=== PATIENT | male | born 1990 | race Caucasian/White ===

== ENCOUNTER 2019-02-11 09:28 | Emergency (ER) | payer MEDICAID, OTHER ==
--- NOTE | 2019-02-11 10:29 | UC ---
Respiratory Complaint HPI - HPI Summary HPI Summary: 28-year-old male with cough and cold symptoms for greater than 1 week. He states now he has some wheezing. He is a nonsmoker. It was also noted that his blood pressure was elevated which she states he has in his family history however he does not take any medicine for that. - History of Current Complaint Chief Complaint: UCRespiratory Stated Complaint: COUGH WHEEZING Time Seen by Provider: 02/11/19 10:28 Hx Obtained From: Patient Onset/Duration: Gradual Onset Severity Initially: Mild Severity Currently: Mild Pain Intensity: 0 Character: Cough: Productive - Productive cough of yellow sputum. Aggravating Factors: Deep Breaths Alleviating Factors: Nothing Associated Signs And Symptoms: Positive: URI, Nasal Congestion - Allergies/Home Medications Allergies/Adverse Reactions: Allergies Allergy/AdvReac Type Severity Reaction Status Date / Time No Known Allergies Allergy Verified 02/11/19 09:52 PMH/Surg Hx/FS Hx/Imm Hx Previously Healthy: Yes - Surgical History Surgical History: None - Family History Known Family History: Positive: Hypertension - Social History Occupation: Employed Full-time Lives: With Family Alcohol Use: Rare Substance Use Type: None Smoking Status (MU): Never Smoked Tobacco Review of Systems All Other Systems Reviewed And Are Negative: Yes Constitutional: Positive: Fever, Chills - Patient has not registered any fever or home but he states he goes from feeling hot to cold. ENT: Positive: Nasal Discharge, Sinus Congestion Respiratory: Positive: Cough - Productive cough of yellow sputum. Is Patient Immunocompromised?: No Physical Exam Triage Information Reviewed: Yes Appearance: Well-Appearing, No Pain Distress, Well-Nourished Vital Signs: Initial Vital Signs Temp 97.6 F 02/11/19 09:48 Pulse 64 02/11/19 09:48 Resp 20 02/11/19 09:48 BP 144/100 02/11/19 09:48 Pulse Ox 100 02/11/19 09:48 Vital Signs Reviewed: Yes Eyes: Positive: Conjunctiva Clear ENT: Positive: Pharynx normal, Nasal congestion, Nasal drainage, TMs normal, Uvula midline Neck: Positive: Supple, Nontender, No Lymphadenopathy Respiratory: Positive: No respiratory distress, No accessory muscle use, Rhonchi , Wheezing - Scattered wheezing and rhonchi throughout, no distress. Cardiovascular: Positive: RRR, No Murmur, Pulses Normal, Brisk Capillary Refill Musculoskeletal Exam: Normal Neurological Exam: Normal Psychological Exam: Normal Skin Exam: Normal Respiratory Course/Dx - Course Course Of Treatment: DuoNeb treatment: Increased aeration and decreased wheezing throughout all lung mueller. Chest x-ray:FINDINGS: The heart is within normal limits in size. Mediastinal and hilar contours appear within normal limits. The lungs are hyperinflated and clear. No pleural effusion is seen. IMPRESSION: NO EVIDENCE FOR ACTIVE CARDIOPULMONARY DISEASE. The patient has elevated blood pressure today. I did speak with him about this and he does not take any medications. We discussed weight loss and healthy eating however I did advise him he should follow-up with his primary care provider for a recheck. I'm going to start the patient on an albuterol inhaler 2 puffs every 4-6 hours as needed for tight cough or wheezing. He has used inhalers before and states they usually work well for him. I'm also going to give him a Z-Yeyo for treatment. - Differential Dx/Diagnosis Provider Diagnosis: Elevated blood pressure reading in office without diagnosis of hypertension, Bronchitis Discharge ED - Sign-Out/Discharge Documenting (check all that apply): Patient Departure All imaging exams completed and their final reports reviewed: Yes - Discharge Plan Condition: Good Disposition: HOME Prescriptions: Albuterol HFA INHALER* [Ventolin HFA Inhaler*] 2 puff INH Q4H PRN 5 Days #1 mdi PRN Reason: Wheezing Azithromyxin YEYO (NF) [Z-Yeyo (Zithromax) 250 mg tabs #6] 2 tab PO .TODAY, THEN 1 DAILY #6 tab Patient Education Materials: Acute Bronchitis (ED) Referrals: No Primary Care Phys,NOPCP [Primary Care Provider] - [facility] [Outside] Additional Instructions: Increase fluids, use the inhaler 2 puffs every 4-6 hours as needed for tight cough or wheezing. Follow-up with your primary care provider or [facility] in 4 or 5 days if no improvement. Follow-up with your primary care provider or [facility] regarding your elevated blood pressure. - Billing Disposition and Condition Condition: GOOD Disposition: Home
[2019-02-11] MEDS ORDERED: Albuterol/Ipratropium NEB.SOL* Albuterol 2.5 MG/Ipratropium 0.5 MG 3 ML INH ONE (10:33)
== END 2019-02-11 11:12 | disposition home or self-care (01) ==
LOC: UCEAST 09:28
DX: J40 Bronchitis, not specified as acute or chronic (principal); R03.0 Elevated blood-pressure reading, without diagnosis of hypertension; R09.89 Other specified symptoms and signs involving the circulatory and respiratory systems; R06.2 Wheezing; R09.81 Nasal congestion
CPT/HCPCS: 71046; 99202; A9270-GY; G0463